=== PATIENT | female | born 1985 | race African-American/Black ===

== ENCOUNTER 2016-12-27 18:08 | Emergency (ER) | payer BC, OTHER ==
--- NOTE | 2016-12-27 20:17 | ER Document Report ---
Doctor's Note Notes: 12/27/16 20:16 31-year-old female presents with complaints of 5 weeks of intermittent vaginal bleeding. Patient denies any fevers chills nausea vomiting or diarrhea. Patient denies any previous similar episodes. Patient notes it is waxing and waning between heavy bleeding and light bleeding.She went through 2-3 pads. Patient is not on any control abdominal exam: No acute abnormality noted, soft nontender I have greeted and performed a rapid initial assessment of this patient. A comprehensive ED assessment and evaluation of the patient, analysis of test results and completion of the medical decision making process will be conducted by additional ED providers.
--- NOTE | 2016-12-27 21:52 | ER Document Report ---
ED General - General Chief Complaint: Vaginal Bleeding Stated Complaint: VAGINAL BLEEDING Notes: Patient is a 31-year-old female who presents concerns of vaginal bleeding for the past 5 weeks. Patient states that she has a history of highly irregular menstrual periods but does not typically bleed for this long. She has not seen an OB or primary care doctor regarding today's concerns. She has not done anything to try to treat her symptoms. Nothing worsens her symptoms. Denies any associated abdominal pain or vomiting. States she's bleeding through approximately 2-3 pads daily. Denies any associated symptoms other than fatigue. TRAVEL OUTSIDE OF THE [place] IN LAST 30 DAYS: No - Related Data Allergies/Adverse Reactions: acetaminophen [From Percocet] Allergy (Verified 12/27/16 18:14) oxycodone [From Percocet] Allergy (Verified 12/27/16 18:14) Past Medical History - General Information source: Patient - Social History Smoking Status: Never Smoker Frequency of alcohol use: None Drug Abuse: None Lives with: Spouse/Significant other Family History: Reviewed & Not Pertinent Patient has suicidal ideation: No Patient has homicidal ideation: No - Past Medical History Cardiac Medical History: Denies: Hx Coronary Artery Disease, Hx Heart Attack, Hx Hypertension Pulmonary Medical History: Denies: Hx Asthma, Hx Bronchitis, Hx COPD, Hx Pneumonia Neurological Medical History: Denies: Hx Cerebrovascular Accident, Hx Seizures Endocrine Medical History: Reports: Hx Diabetes Mellitus Type 2 - Boarder line Renal/ Medical History: Denies: Hx Peritoneal Dialysis Musculoskeltal Medical History: Denies Hx Arthritis Psychiatric Medical History: Reports: Hx Anxiety, Hx Attention Deficit Hyperactivity Disorder - Immunizations Immunizations up to date: Yes Hx Diphtheria, Pertussis, Tetanus Vaccination: Yes Review of Systems - Review of Systems Notes: Constitutional: Negative for fever. HENT: Negative for sore throat. Eyes: Negative for visual changes. Cardiovascular: Negative for chest pain. Respiratory: Negative for shortness of breath. Gastrointestinal: Negative for abdominal pain, vomiting or diarrhea. Genitourinary: Negative for dysuria. Positive for vaginal bleeding Musculoskeletal: Negative for back pain. Skin: Negative for rash. Neurological: Negative for headaches, weakness or numbness. 10 point ROS negative except as marked above and in HPI. Physical Exam - Vital signs Vitals: Temp Pulse Resp BP Pulse Ox 99.0 F 112 H 16 127/79 H 100 12/27/16 18:13 12/27/16 18:13 12/27/16 18:13 12/27/16 18:13 12/27/16 18:13 Interpretation: Normal Notes: PHYSICAL EXAMINATION: GENERAL: Morbidly obese. Well-appearing, well-nourished and in no acute distress. HEAD: Atraumatic, normocephalic. EYES: Pupils equal round and reactive to light, extraocular movements intact, sclera anicteric, conjunctiva are normal. ENT: nares patent, oropharynx clear without exudates. Moist mucous membranes. NECK: Normal range of motion, supple without lymphadenopathy LUNGS: Breath sounds clear to auscultation bilaterally and equal. No wheezes rales or rhonchi. HEART: Regular rate and rhythm without murmurs ABDOMEN: Obese abdomen. Soft, nontender, normoactive bowel sounds. No guarding , no rebound. No masses appreciated. EXTREMITIES: Normal range of motion, no pitting or edema. No cyanosis. NEUROLOGICAL: No focal neurological deficits. Moves all extremities spontaneously and on command. PSYCH: Normal mood, normal affect. SKIN: Warm, Dry, normal turgor, no rashes or lesions noted. Course - Re-evaluation Re-evalutation: 12/27/16 21:51 Presentation is most consistent with dysfunctional uterine bleeding and otherwise well-appearing patient. Her hemoglobin shows only mild anemia although it is decreased from her prior evaluation by almost 2 points. She is not . No tachycardia (initially present in triage but resolved at time of my assessment) or hypotension. Examination is otherwise unremarkable. She denies bleeding through more than 2 pads an hour at any point in time. No indication for ultrasound at this time based on benign exam, vitals and laboratories. No active bleeding at this time. Patient will be started on oral control pills to help discontinue the bleeding. At this time will discharge with return precautions and follow-up recommendations. Verbal discharge instructions given a the bedside and opportunity for questions given. Medication warnings reviewed. Patient is in agreement with this plan and has verbalized understanding of return precautions and the need for primary care follow-up in the next 24-72 hours. - Vital Signs Vital signs: Temp Pulse Resp BP Pulse Ox 98.0 F 95 18 108/54 L 94 12/27/16 23:59 12/27/16 23:59 12/27/16 23:59 12/27/16 23:59 12/27/16 23:59 - Laboratory Result Diagrams: 12/27/16 22:33 12/27/16 22:33 Laboratory results interpreted by me: 12/27/16 12/27/16 22:33 22:33 Hgb 10.6 L Hct 33.7 L MCV 79 L MCH 25.0 L MCHC 31.5 L RDW 14.8 H Carbon Dioxide 32 H Discharge - Discharge Clinical Impression: Dysfunctional uterine bleeding, Blood loss anemia Condition: Good Disposition: HOME, SELF-CARE Additional Instructions: You were seen today for dysfunctional uterine bleeding. This is when you have vaginal bleeding and abdominal cramping off of your normal menstrual cycle. You have been started on control pills to help regulate your cycle and control your symptoms. You need to follow-up with [facility] or your primary care physician the next 1-3 days. Return immediately if you worsening pain, you began bleeding through more than 2 pads per hour for more than 3 hours, you pass out, have persistent vomiting, develop a fever greater than 100.4F, or any other symptoms that are concerning to you. Prescriptions: Norgestimate-Ethinyl Estradiol [Sprintec 28 Day Tablet] 1 tab PO DAILY #1 packet Referrals: MIGUEL CADENA NP [Primary Care Provider] - Follow up as needed XIN MEJIAS MD [ACTIVE STAFF] - Follow up in 3-5 days
[2016-12-27 23:12] LABS: ABSOLUTE EOSINOPHILS # (AUTO) 0.1 10^3/uL (0.0-0.6); ABSOLUTE LYMPHOCYTES (AUTO) 2.6 10^3/uL (0.5-4.7); ABSOLUTE MONOCYTES (AUTO) 0.7 10^3/uL (0.1-1.4); ABSOLUTE NEUT (AUTO) 6.6 10^3/uL (1.7-8.2); BASOPHILS % (AUTO) 0.3 % (0-2); EOSINOPHILS % (AUTO) 1.1 % (0-6); HEMATOCRIT 33.7 % (36.0-47.0); HEMOGLOBIN 10.6 g/dL (12.0-15.5); HGB HCT DIFFERENCE -1.9; LYMPHOCYTES % (AUTO) 26.1 % (13-45); MEAN CORPUSCULAR HGB CONC 31.5 g/dL (32.0-36.0); MEAN CORPUSCULAR VOLUME 79 fl (80-97); MONOCYTES % (AUTO) 7.2 % (3-13); RED BLOOD COUNT 4.25 10^6/uL (3.72-5.28); RED CELL DISTRIBUTION WIDTH 14.8 % (11.5-14.0); SEGMENTED NEUTROPHILS % (AUTO) 65.3 % (42-78)
[2016-12-27 23:15] LABS: ANION GAP 9 (5-19); BLOOD UREA NITROGEN 10 mg/dL (7-20); CALCIUM 9.2 mg/dL (8.4-10.2); CARBON DIOXIDE 32 mmol/L (22-30); CHLORIDE 100 mmol/L (98-107); CREATININE RESULT 0.68 mg/dL (0.52-1.25); GLUCOSE 100 mg/dL (75-110); POTASSIUM 4.3 mmol/L (3.6-5.0); SODIUM 140.5 mmol/L (137-145)
[2016-12-28 01:31] VITALS: BP 108/54
== END 2016-12-28 | disposition home or self-care (01) ==
LOC: ER 18:08
DX: N93.8 Other specified abnormal uterine and vaginal bleeding (principal); D50.0 Iron deficiency anemia secondary to blood loss (chronic); E66.01 Morbid (severe) obesity due to excess calories; Z68.43 Body mass index [BMI] 50.0-59.9, adult; Z88.5 Allergy status to narcotic agent
CPT/HCPCS: 36415; 80048; 81025; 85025; 99284

== ENCOUNTER → 2017-02-16 | Outpatient (CLI) | payer OTHER | LOC: WI 02-12 13:39 | PROVIDERS: ATTEND Nurse Practitioner Women's Health | DX: N93.8 Other specified abnormal uterine and vaginal bleeding (principal) | CPT/HCPCS: 76856 ==

== ENCOUNTER 2017-03-08 17:18 | Emergency (ER) | payer OTHER ==
--- NOTE | 2017-03-08 18:33 | ER Document Report ---
ED Medical Screen (RME) - General Chief Complaint: Chest Pain Stated Complaint: CHEST PAIN Time Seen by Provider: 03/08/17 18:32 Notes: Patient became ill this past week. On Thursday she saw her primary care provider because she has a recurrent cyst in her left axilla. She has been scheduled to see the local surgeon because she has had since there before that he has taken care of. On Thursday, she developed a sore throat with congestion. Seen at a local urgent care and an attempted rapid strep was unsuccessful. Patient returned to the urgent care this morning because she was feeling much worse. Having difficulty talking. Patient was put on penicillin today. Diagnosed as URI and pharyngitis. This afternoon, patient has had some upper left chest pains. I was able to get a swabbing for a rapid strep. The patient's posterior oropharynx is quite red, but I did not see exudates. I do not see any unilateral swelling of the uvula or posterior soft palate. I obtained a swabbing, but I am not confident that it was the best or most reliable swabbing. PMH: Depression, ADHD. Non-smoker. TRAVEL OUTSIDE OF THE [place] IN LAST 30 DAYS: No - Related Data Allergies/Adverse Reactions: acetaminophen [From Percocet] Allergy (Verified 03/08/17 17:26) oxycodone [From Percocet] Allergy (Verified 03/08/17 17:26) Past Medical History - Past Medical History Cardiac Medical History: Denies: Hx Coronary Artery Disease, Hx Heart Attack, Hx Hypertension Pulmonary Medical History: Denies: Hx Asthma, Hx Bronchitis, Hx COPD, Hx Pneumonia Neurological Medical History: Denies: Hx Cerebrovascular Accident, Hx Seizures Endocrine Medical History: Reports: Hx Diabetes Mellitus Type 2 - Board[place] line Renal/ Medical History: Denies: Hx Peritoneal Dialysis Musculoskeltal Medical History: Denies Hx Arthritis Psychiatric Medical History: Reports: Hx Anxiety, Hx Attention Deficit Hyperactivity Disorder - Immunizations Immunizations up to date: Yes Hx Diphtheria, Pertussis, Tetanus Vaccination: Yes Physical Exam - Vital signs Vitals: Temp Pulse Resp BP Pulse Ox 98.7 F 122 H 14 136/96 H 100 03/08/17 17:26 03/08/17 17:26 03/08/17 17:26 03/08/17 17:26 03/08/17 17:26 Course - Vital Signs Vital signs: Temp Pulse Resp BP Pulse Ox 98.7 F 122 H 14 136/96 H 100 03/08/17 17:26 03/08/17 17:26 03/08/17 17:26 03/08/17 17:26 03/08/17 17:26
[2017-03-08 18:49] LABS: ABSOLUTE EOSINOPHILS # (AUTO) 0.2 10^3/uL (0.0-0.6); ABSOLUTE LYMPHOCYTES (AUTO) 2.1 10^3/uL (0.5-4.7); ABSOLUTE MONOCYTES (AUTO) 0.9 10^3/uL (0.1-1.4); ABSOLUTE NEUT (AUTO) 11.7 10^3/uL (1.7-8.2); BASOPHILS % (AUTO) 0.2 % (0-2); HEMATOCRIT 36.8 % (36.0-47.0); HEMOGLOBIN 11.6 g/dL (12.0-15.5); LYMPHOCYTES % (AUTO) 14.3 % (13-45); MEAN CORPUSCULAR HEMOGLOBIN 24.5 pg (27.0-33.4); MEAN CORPUSCULAR HGB CONC 31.4 g/dL (32.0-36.0); MEAN CORPUSCULAR VOLUME 78 fl (80-97); MONOCYTES % (AUTO) 6.2 % (3-13); RED BLOOD COUNT 4.72 10^6/uL (3.72-5.28); RED CELL DISTRIBUTION WIDTH 16.2 % (11.5-14.0); SEGMENTED NEUTROPHILS % (AUTO) 78.3 % (42-78); WHITE BLOOD COUNT 14.9 10^3/uL (4.0-10.5)
[2017-03-08 18:53] LABS: APPEARANCE,URINE CLEAR; BILIRUBIN,URINE NEGATIVE (NEGATIVE); GLUCOSE, URINE NEGATIVE (NEGATIVE); KETONES,URINE NEGATIVE (NEGATIVE); LEUKOCYTE ESTERASE,URINE NEGATIVE (NEGATIVE); NITRITE,URINE NEGATIVE (NEGATIVE); PROTEIN,URINE NEGATIVE (NEGATIVE); URINE SPECIFIC GRAVITY 1.008; UROBILINOGEN,URINE NEGATIVE mg/dL (<2.0)
[2017-03-08 18:54] LABS: ALANINE AMINOTRANSFERASE 27 U/L (9-52); ALBUMIN 3.8 g/dL (3.5-5.0); ALKALINE PHOSPHATASE 109 U/L (38-126); ANION GAP 12 (5-19); ASPARTATE AMINO TRANSFERASE 15 U/L (14-36); BILIRUBIN,DIRECT 0.3 mg/dL (0.0-0.4); BILIRUBIN,TOTAL 0.4 mg/dL (0.2-1.3); BLOOD UREA NITROGEN 9 mg/dL (7-20); CALCIUM 9.2 mg/dL (8.4-10.2); CARBON DIOXIDE 27 mmol/L (22-30); CHLORIDE 100 mmol/L (98-107); CREATININE RESULT 0.71 mg/dL (0.52-1.25); GLUCOSE 118 mg/dL (75-110); POTASSIUM 4.2 mmol/L (3.6-5.0); SODIUM 138.7 mmol/L (137-145); TOTAL PROTEIN 7.8 g/dL (6.3-8.2)
[2017-03-08 19:06] LABS: CREATINE KINASE MB 0.31 ng/mL (<4.55); TROPONIN I < 0.012 ng/mL
--- NOTE | 2017-03-08 19:09 | RADIOLOGY REPORT (SQ) ---
EXAM DESCRIPTION: SOFT TISSUE NECK COMPLETED DATE/TIME: 03/08/2017 7:01 pm REASON FOR STUDY: AP and lateral soft tissue neck, hoarse voice COMPARISON: None. NUMBER OF VIEWS: Two views. TECHNIQUE: AP and lateral radiographic image of the soft tissues of the neck. LIMITATIONS: None. FINDINGS: EPIGLOTTIS: Normal. Contour normal. Aryepiglottic folds normal. PREVERTEBRAL SOFT TISSUES: Normal. No soft tissue swelling. SUBGLOTTIC AREA: Normal. No narrowing. RETROPHARYNGEAL SPACE: Normal. No soft tissue masses. BONY STRUCTURES: No significant findings. LUNG APICES: Normal. OTHER: No radiopaque foreign body. No other significant finding. IMPRESSION: NEGATIVE STUDY OF THE SOFT TISSUES OF THE NECK. TECHNICAL DOCUMENTATION: JOB ID: [id number] [employer]- All Rights Reserved
--- NOTE | 2017-03-08 19:10 | RADIOLOGY REPORT (SQ) ---
EXAM DESCRIPTION: CHEST PA/LAT COMPLETED DATE/TIME: 03/08/2017 7:01 pm REASON FOR STUDY: Fever and cough COMPARISON: 2015 TECHNIQUE: Frontal and lateral radiographic views of the chest acquired. NUMBER OF VIEWS: Two view. LIMITATIONS: None. FINDINGS: LUNGS AND PLEURA: No opacities, masses or pneumothorax. No pleural effusion. MEDIASTINUM AND HILAR STRUCTURES: No masses or contour abnormalities. HEART AND VASCULAR STRUCTURES: Heart normal size. No evidence for failure. BONES: No acute findings. HARDWARE: None in the chest. OTHER: No other significant finding. IMPRESSION: NO SIGNIFICANT RADIOGRAPHIC FINDING IN THE CHEST. TECHNICAL DOCUMENTATION: JOB ID: [id number] [employer]- All Rights Reserved
[2017-03-08] MEDS ORDERED: NORMAL SALINE 1000 ML 1,000 ML IV ONE (19:36)
[2017-03-08] MEDS ORDERED: ONDANSETRON HCL INJ/PF 4 MG/2 ML SDV IV ONE (20:08)
[2017-03-08] MEDS ORDERED: MORPHINE SULFATE 10 MG/ML INJ IV ONE (20:08)
--- NOTE | 2017-03-08 20:11 | ER Document Report ---
ED General - General Mode of Arrival: Ambulatory Information source: Patient TRAVEL OUTSIDE OF THE [place] IN LAST 30 DAYS: No - HPI Onset: Other - Refer to HPI note Similar symptoms previously: No Recently seen / treated by doctor: No <FANTA CRUM - Last Filed: 03/08/17 22:16> <KAILEEMORENO ANN - Last Filed: 03/09/17 01:37> - General Chief Complaint: Chest Pain Stated Complaint: CHEST PAIN Time Seen by Provider: 03/08/17 18:32 Notes: Patient is a 31-year-old female presented emergency department for sharp pain in her right breast. Patient states her pain was onset at 15:00 today. Patient states she is recently diagnosed with an upper respiratory infection at the urgent care on Thursday. Patient also complains of some chronic constipation states she has been taking stool softeners, enemas and laxatives. Patient also has a cough and has been vomiting today. (FANTA CRUM) - Related Data Allergies/Adverse Reactions: acetaminophen [From Percocet] Allergy (Verified 03/08/17 17:26) oxycodone [From Percocet] Allergy (Verified 03/08/17 17:26) Past Medical History - General Information source: Patient - Social History Smoking Status: Never Smoker Cigarette use (# per day): No Chew tobacco use (# tins/day): No Frequency of alcohol use: None Drug Abuse: None Family History: None Patient has suicidal ideation: No Patient has homicidal ideation: No Endocrine Medical History: Reports: Hx Diabetes Mellitus Type 2 - Boarder line Psychiatric Medical History: Reports: Hx Anxiety, Hx Attention Deficit Hyperactivity Disorder Surgical Hx: Negative - Immunizations Immunizations up to date: Yes Hx Diphtheria, Pertussis, Tetanus Vaccination: Yes <FANTA CRUM - Last Filed: 03/08/17 22:16> Review of Systems - Review of Systems Constitutional: No symptoms reported EENT: No symptoms reported Cardiovascular: No symptoms reported Respiratory: No symptoms reported Gastrointestinal: See HPI, Abdominal pain, Nausea, Vomiting Genitourinary: No symptoms reported Female Genitourinary: No symptoms reported Musculoskeletal: No symptoms reported Skin: No symptoms reported Hematologic/Lymphatic: No symptoms reported Neurological/Psychological: No symptoms reported -: Yes All other systems reviewed and negative <FANTA CRUM - Last Filed: 03/08/17 22:16> Physical Exam - Vital signs Interpretation: Tachycardic - General General appearance: Appears well, Alert In distress: Mild - HEENT Head: Normocephalic, Atraumatic Eyes: Normal Pupils: PERRL Mucous membranes: Moist - Respiratory Respiratory status: No respiratory distress Chest status: Nontender Breath sounds: Normal Chest palpation: Normal - Cardiovascular Rhythm: Regular Heart sounds: Normal auscultation Murmur: No - Abdominal Inspection: Normal Distension: No distension Bowel sounds: Normal Tenderness: Tender - right upper quadrant tenderness to palpation, Guarding Organomegaly: No organomegaly - Back Back: Normal, Nontender - Extremities General upper extremity: Normal inspection, Normal ROM, Normal strength General lower extremity: Normal inspection, Normal ROM, Normal strength - Neurological Neuro grossly intact: Yes Cognition: Normal Orientation: AAOx4 [place] Coma Scale Eye Opening: Spontaneous [place] Coma Scale Verbal: Oriented Demetrio Coma Scale Motor: Obeys Commands [place] Coma Scale Total: 15 Speech: Normal - Psychological Associated symptoms: Normal affect, Normal mood - Skin Skin Temperature: Warm Skin Moisture: Dry <FANTA CRUM - Last Filed: 03/08/17 22:16> <MORENO DUGAN - Last Filed: 03/09/17 01:37> - Vital signs Vitals: Temp Pulse Resp BP Pulse Ox 98.7 F 122 H 14 136/96 H 100 03/08/17 17:26 03/08/17 17:26 03/08/17 17:26 03/08/17 17:26 03/08/17 17:26 Course - Laboratory Result Diagrams: 03/08/17 17:55 03/08/17 17:55 <FANTA CRUM - Last Filed: 03/08/17 22:16> - Laboratory Result Diagrams: 03/08/17 17:55 03/08/17 17:55 <MORENO DUGAN - Last Filed: 03/09/17 01:37> - Re-evaluation Re-evalutation: 03/09/17 00:12 Patient with mild leukocytosis. No acute findings on ultrasound, CT, or x- rays. Patient thinks that her pain is related to constipation although it is worse when she moves. I cannot find any dangerous cause of the patient's pain tonight. Patient is requesting to go home at this time. She is to return if any worsening or concerning symptoms. Stable for discharge. (MORENO DUGAN) - Vital Signs Vital signs: Temp Pulse Resp BP Pulse Ox 98.6 F 122 H 17 120/77 100 03/08/17 23:21 03/08/17 17:26 03/08/17 22:00 03/08/17 22:47 03/08/17 22:47 - Laboratory Laboratory results interpreted by me: 03/08/17 03/08/17 03/08/17 17:55 17:55 17:55 WBC 14.9 H Hgb 11.6 L MCV 78 L MCH 24.5 L MCHC 31.4 L RDW 16.2 H Seg Neutrophils % 78.3 H Absolute Neutrophils 11.7 H Glucose 118 H Lipase 671.3 H Discharge <FANTA CRUM - Last Filed: 03/08/17 22:16> <MORENO DUGAN - Last Filed: 03/09/17 01:37> - Discharge Clinical Impression: Atypical chest pain Constipation Qualifiers: Constipation type: other constipation type Qualified Code(s): K59.09 - Other constipation Abdominal pain Qualifiers: Abdominal location: right upper quadrant Qualified Code(s): R10.11 - Right upper quadrant pain Condition: Stable Disposition: HOME, SELF-CARE Instructions: Abdominal Pain ([facility]), Chest Pain of Unclear Cause ([facility]) Additional Instructions: Please follow-up with your doctor this week. Forms: Return to Work Scribe Attestation: 03/09/17 01:37 I personally performed the services described in the documentation, reviewed and edited the documentation which was dictated to the scribe in my presence, and it accurately records my words and actions. (MORENO DUGAN) Scribe Documentation - Scribe Written by Mandeep:: Mandeep Begum 03/08/17 22:19 acting as scribe for :: Kailee <FANTA CRUM - Last Filed: 03/08/17 22:16>
--- NOTE | 2017-03-08 21:26 | RADIOLOGY REPORT (SQ) ---
EXAM DESCRIPTION: U/S ABDOMEN LIMITED W/O DOP COMPLETED DATE/TIME: 03/08/2017 9:18 pm REASON FOR STUDY: RUQ pain COMPARISON: None. TECHNIQUE: Dynamic and static grayscale images acquired of the abdomen and recorded on PACS. Additio nal selected color Doppler and spectral images recorded. LIMITATIONS: None. FINDINGS: PANCREAS: No masses. Visualized pancreatic duct normal caliber. LIVER: Diffusely echogenic, likely fatty. No focal lesions. No enlargement. LIVER VASCULATURE: Normal directional flow of the main portal vein and hepatic veins. GALLBLADDER: No stones. Normal wall thickness. No pericholecystic fluid. ULTRASOUND-DETECTED FERNANDEZ'S SIGN: Negative. INTRAHEPATIC DUCTS AND COMMON DUCT: CBD and intrahepatic ducts normal caliber. No filling defects. INFERIOR VENA CAVA: Normal flow. AORTA: No aneurysm. RIGHT KIDNEY: Normal size. Normal echogenicity. No solid or suspicious masses. No hydronephrosis. No calcifications. PERITONEAL AND RIGHT PLEURAL SPACE: No ascites or effusions. OTHER: No other significant findings. IMPRESSION: Fatty liver. No acute findings appreciated. TECHNICAL DOCUMENTATION: JOB ID: [id number]- All Rights Reserved
--- NOTE | 2017-03-08 23:10 | RADIOLOGY REPORT (SQ) ---
EXAM DESCRIPTION: CTA CHEST COMPLETED DATE/TIME: 03/08/2017 10:21 pm REASON FOR STUDY: evaluate for PE COMPARISON: None. TECHNIQUE: CT scan of the chest performed using helical scanning technique with dynamic intravenous contrast injection. Images reviewed with lung, soft tissue and bone windows. Reconstructed coronal and sagittal MPR images reviewed. Additional 3 dimensional post-processing performed to develop Maximal Intensity Projection images (CT P). All images stored on PACS. All CT scanners at this facility use dose modulation, iterative reconstruction, and/or weight based d osing when appropriate to reduce radiation dose to as low as reasonably achievable (ALARA). [facility]: Dose Right [facility]: CareDose [facility]: Dose Right [facility]: Teradose 4D [facility]: ProHatch CONTRAST TYPE AND DOSE: 86 mL Isovue 370- low osmolar. RENAL FUNCTION: GFR > 60. RADIATION DOSE: 68.27 mGy. LIMITATIONS: Mild breathing motion. FINDINGS: LUNGS AND PLEURA: No masses, infiltrates, pneumothorax. No pleural effusions, calcificati ons. AORTA AND GREAT VESSELS: No aneurysm or dissection. HEART: No pericardial effusion. PULMONARY ARTERIES: No emboli visualized in the main pulmonary arteries or the segmental branches. HILAR AND MEDIASTINAL STRUCTURES: No identified masses or abnormal nodes. HARDWARE: None in the chest. UPPER ABDOMEN: No significant findings. Limited exam. THYROID AND OTHER SOFT TISSUES: No masses. No adenopathy. BONES: No acute or significant finding. 3D MIPS: Confirm above findings. OTHER: No other significant finding. IMPRESSION: No emboli visualized in the main pulmonary arteries or the segmental branches. No acute findings. TECHNICAL DOCUMENTATION: JOB ID: [id number] Quality ID # [id number]: Final reports with documentation of one or more dose reduction techniques (e.g., Au tomated exposure control, adjustment of the mA and/or kV according to patient size, use of iterative reconstruction technique) 2010 [employer]- All Rights Reserved
[2017-03-09] MEDS ORDERED: KETOROLAC TROMETHAMINE INJ/PF 30 MG/1 ML SDV IV ONE (00:12)
[2017-03-09 04:19] VITALS: BP 114/80
== END 2017-03-09 00:20 | disposition home or self-care (01) ==
LOC: ER 17:18
DX: R07.89 Other chest pain (principal); K59.00 Constipation, unspecified; N64.4 Mastodynia; R10.11 Right upper quadrant pain; R11.2 Nausea with vomiting, unspecified; R05 Cough; D72.829 Elevated white blood cell count, unspecified; Z88.5 Allergy status to narcotic agent
CPT/HCPCS: 99285; 96361; 96374; 96375; 36415; 82553; 83690; 84703; 85025; 80053; 81001; 84484; 71020; 70360; 76705; 71275; J2270; J2405; J7030

== ENCOUNTER → 2017-06-04 | Outpatient (CLI) | payer OTHER ==
--- NOTE | 2017-06-04 12:39 | RADIOLOGY REPORT (SQ) ---
EXAM DESCRIPTION: MRI THORACIC SPINE WITHOUT COMPLETED DATE/TIME: 06/04/2017 11:34 am REASON FOR STUDY: PAININ THORACIC SPINE M54.6 PAIN IN THORACIC SPINE COMPARISON: Two-view chest 12/16/2014 MRI cervical spine 01/23/2016 CT angio chest 03/08/2017 TECHNIQUE: Sagittal and Axial imaging includes T1, T2, STIR and gradient echo sequences. LIMITATIONS: None. FINDINGS: LOCALIZER: No worrisome findings. ALIGNMENT: Normal. VERTEBRAE: Intact. BONE MARROW: Normal. No marrow replacement or reactive changes. HARDWARE: None in the spine. CORD: Normal in size and signal intensity. SOFT TISSUES: No soft tissue masses. THORACIC DISCS T1-T12: No significant spinal stenosis or exit foraminal stenosis. LOWER CERVICAL: Incompletely imaged. No significant spinal stenosis or exit foraminal stenosis. UPPER LUMBAR: Incompletely imaged. No significant spinal stenosis or exit foraminal stenosis. OTHER: There is mild bilateral facet arthropathy in the mid and lower thoracic spine without signific ant foraminal encroachment. IMPRESSION: NORMAL MRI THORACIC SPINE. TECHNICAL DOCUMENTATION: JOB ID: [id number]- All Rights Reserved
== END ==
LOC: RAD 10:37
PROVIDERS: ATTEND Nurse Practitioner
DX: M54.6 Pain in thoracic spine (principal); G89.29 Other chronic pain
CPT/HCPCS: 72146

== ENCOUNTER 2017-06-16 15:25 | Emergency (ER) | payer OTHER ==
--- NOTE | 2017-06-16 16:57 | ER Document Report ---
ED Extremity Problem, Lower - General Chief Complaint: Leg Pain Stated Complaint: LEG PAIN Time Seen by Provider: 06/16/17 16:51 Mode of Arrival: Ambulatory Information source: Patient Notes: Patient states that she has some left lower externally pain that has been intermittently present since a arthroscopic procedure several months ago. She states that she noticed some recent swelling and pain and so she had an ultrasound done today. These ultrasound results have been located and they were negative for DVT. The ultrasound performed here in radiology. Patient states that she signed in the emergency department because of the leg pain. The pain is constant. It is worse with movement and better with rest. It does radiate up the left leg. It is a throbbing sensation. She also feels that she has some swelling. She states she has a knee brace but does not wear it because it makes the pain worse. TRAVEL OUTSIDE OF THE [place] IN LAST 30 DAYS: No - Related Data Allergies/Adverse Reactions: acetaminophen [From Percocet] Allergy (Verified 06/16/17 15:39) oxycodone [From Percocet] Allergy (Verified 06/16/17 15:39) Past Medical History - General Information source: Patient - Social History Smoking Status: Never Smoker Chew tobacco use (# tins/day): No Frequency of alcohol use: None Drug Abuse: None Lives with: Family Family History: None Patient has suicidal ideation: No Patient has homicidal ideation: No - Past Medical History Cardiac Medical History: Denies: Hx Coronary Artery Disease, Hx Heart Attack, Hx Hypertension Pulmonary Medical History: Denies: Hx Asthma, Hx Bronchitis, Hx COPD, Hx Pneumonia Neurological Medical History: Denies: Hx Cerebrovascular Accident, Hx Seizures Endocrine Medical History: Reports: Hx Diabetes Mellitus Type 2 - [place] line Renal/ Medical History: Denies: Hx Peritoneal Dialysis Musculoskeltal Medical History: Denies Hx Arthritis Psychiatric Medical History: Reports: Hx Anxiety, Hx Attention Deficit Hyperactivity Disorder - Immunizations Immunizations up to date: Yes Hx Diphtheria, Pertussis, Tetanus Vaccination: Yes Review of Systems - Review of Systems Constitutional: denies: Chills, Fever Cardiovascular: denies: Chest pain, Palpitations Respiratory: denies: Cough, Short of breath Gastrointestinal: denies: Diarrhea, Vomiting -: Yes All other systems reviewed and negative Physical Exam - Vital signs Vitals: Temp Pulse Resp BP Pulse Ox 98.8 F 106 H 14 137/91 H 100 06/16/17 15:39 06/16/17 15:39 06/16/17 15:39 06/16/17 15:39 06/16/17 15:39 Interpretation: Hypertensive, Tachycardic - General General appearance: Appears well, Alert - HEENT Head: Normocephalic, Atraumatic Eyes: Normal Pupils: PERRL - Respiratory Respiratory status: No respiratory distress Chest status: Nontender Breath sounds: Normal Chest palpation: Normal - Cardiovascular Rhythm: Tachycardia Heart sounds: Normal auscultation Murmur: No - Abdominal Inspection: Normal Distension: No distension Bowel sounds: Normal Tenderness: Nontender Organomegaly: No organomegaly - Back Back: Normal, Nontender - Extremities General upper extremity: Normal inspection, Nontender, Normal color, Normal ROM , Normal temperature General lower extremity: Tender, Normal color, Normal temperature. No: Sue's sign - Neurological Neuro grossly intact: Yes Cognition: Normal Orientation: AAOx4 Demetrio Coma Scale Eye Opening: Spontaneous [place] Coma Scale Verbal: Oriented [place] Coma Scale Motor: Obeys Commands [place] Coma Scale Total: 15 Speech: Normal Motor strength normal: LUE, RUE, LLE, RLE Sensory: Normal - Psychological Associated symptoms: Normal affect, Normal mood - Skin Skin Temperature: Warm Skin Moisture: Dry Skin Color: Normal Course - Vital Signs Vital signs: Temp Pulse Resp BP Pulse Ox 98.8 F 106 H 14 137/91 H 100 06/16/17 15:39 06/16/17 15:39 06/16/17 15:39 06/16/17 15:39 06/16/17 15:39 - Diagnostic Test Radiology reviewed: Image reviewed, Reports reviewed - doppler of LLE is neg for dvt Discharge - Discharge Clinical Impression: Leg pain Condition: Stable Disposition: HOME, SELF-CARE Instructions: Leg Cramps ([facility]) Additional Instructions: Please call orthopedics as soon as possible to establish follow-up Forms: Elevated Blood Pressure Referrals: CASS AGOSTO MD [ACTIVE STAFF] - Follow up tomorrow
[2017-06-16 17:20] VITALS: BP 137/92
== END 2017-06-16 17:20 | disposition home or self-care (01) ==
LOC: ER 15:25
DX: M79.662 Pain in left lower leg (principal); R73.03 Prediabetes; Z88.6 Allergy status to analgesic agent
CPT/HCPCS: 99283

== ENCOUNTER → 2017-06-16 | Outpatient (CLI) | payer OTHER ==
--- NOTE | 2017-06-16 16:38 | XCELERA REPORT ---
[address] [address] Lower Extremity Venous Evaluation Name: BERENICE CANNON Age: 31 yrs Gender: Female : 1985 Patient Status: Outpatient Patient Location: Study Date: 06/16/2017 02:46 PM Procedure: Color flow and duplex imaging of the veins of the left lower extremity as well as the right Common Femoral vein. Reason For Study: LLE SWELLING Ordering Physician: TODD [place] Performed By: Liat Willis Right Sided Venous Evaluation The right common femoral vein is fully compressible. Spontaneous and phasic flow is present in the right common femoral vein. Left Sided Venous Evaluation Normal vessel filling wall to wall, compression and augmentation as well as Colour flow down to the infrageniculate veins. Interpretation Summary No duplex evidence of DVT or obstruction in the left lower extremity nor in the right Common Femoral vein. : TODD [place]OR[place]O > Goldy Alicia
== END ==
LOC: SP 14:29
PROVIDERS: ATTEND Family Medicine
DX: R22.42 Localized swelling, mass and lump, left lower limb (principal)
CPT/HCPCS: 93971

== ENCOUNTER 2017-06-17 03:06 | Emergency (ER) | payer OTHER ==
[2017-06-17 03:19] VITALS: BP 138/91
== END 2017-06-17 06:30 | disposition left against medical advice (07) ==
LOC: ER 03:06
DX: Z53.9 Procedure and treatment not carried out, unspecified reason (principal); M79.605 Pain in left leg

== ENCOUNTER 2017-06-20 23:21 | Emergency (ER) | payer BC, OTHER ==
[2017-06-20] MEDS ORDERED: FAMOTIDINE 20 MG TABLET PO ONE (23:49)
[2017-06-20] MEDS ORDERED: ONDANSETRON 4 MG TAB.RAPDIS PO ONE (23:49)
[2017-06-20] MEDS ORDERED: SUCRALFATE 1 GM TABLET PO ONE (23:49)
--- NOTE | 2017-06-20 23:52 | ER Document Report ---
ED General - General Chief Complaint: Rectal Bleeding Stated Complaint: RECTAL BLEEDING Time Seen by Provider: 06/20/17 23:38 Notes: Patient is a 31-year-old female comes emergency department for chief complaint of abdominal discomfort and flank pain on both sides, she states she cannot stop belching and passing gas, she also states she had a normal consistency bowel movement with bright red blood in it, she thinks she has hemorrhoids. She denies vomiting, fever, injury. She is on Flexeril and meloxicam for chronic lower back pain and sees a specialist and got a back injection. She denies numbness, incontinence, new pain in her lower back. TRAVEL OUTSIDE OF THE [place] IN LAST 30 DAYS: No - Related Data Allergies/Adverse Reactions: acetaminophen [From Percocet] Allergy (Verified 06/20/17 23:25) oxycodone [From Percocet] Allergy (Verified 06/20/17 23:25) Past Medical History - General Information source: Patient - Social History Smoking Status: Never Smoker Frequency of alcohol use: None Drug Abuse: None Lives with: Family Family History: None Patient has suicidal ideation: No Patient has homicidal ideation: No - Past Medical History Cardiac Medical History: Denies: Hx Coronary Artery Disease, Hx Heart Attack, Hx Hypertension Pulmonary Medical History: Denies: Hx Asthma, Hx Bronchitis, Hx COPD, Hx Pneumonia Neurological Medical History: Denies: Hx Cerebrovascular Accident, Hx Seizures Endocrine Medical History: Reports: Hx Diabetes Mellitus Type 2 - [place] Renal/ Medical History: Denies: Hx Peritoneal Dialysis Musculoskeltal Medical History: Denies Hx Arthritis Psychiatric Medical History: Reports: Hx Anxiety, Hx Attention Deficit Hyperactivity Disorder Past Surgical History: Reports: Hx Orthopedic Surgery - Immunizations Immunizations up to date: Yes Hx Diphtheria, Pertussis, Tetanus Vaccination: Yes Review of Systems - Review of Systems Constitutional: No symptoms reported EENT: No symptoms reported Cardiovascular: No symptoms reported Respiratory: No symptoms reported Gastrointestinal: See HPI Genitourinary: See HPI Female Genitourinary: No symptoms reported Musculoskeletal: See HPI Skin: No symptoms reported Hematologic/Lymphatic: No symptoms reported Neurological/Psychological: No symptoms reported Physical Exam - Vital signs Vitals: Temp Pulse Resp BP Pulse Ox 98.6 F 108 H 18 133/86 H 100 06/20/17 23:26 06/20/17 23:26 06/20/17 23:26 06/20/17 23:26 06/20/17 23:26 Interpretation: Normal - General General appearance: Appears well, Alert - HEENT Head: Normocephalic, Atraumatic Eyes: Normal Pupils: PERRL Nasal: Normal Mouth/Lips: Normal Mucous membranes: Normal Pharynx: Normal Neck: Normal - Respiratory Respiratory status: No respiratory distress Chest status: Nontender Breath sounds: Normal. No: Decreased air movement, Wheezing Chest palpation: Normal - Cardiovascular Rhythm: Regular, Tachycardia - Borderline Heart sounds: Normal auscultation, S1 appreciated, S2 appreciated Murmur: No - Abdominal Inspection: Normal Distension: No distension Bowel sounds: Normal Tenderness: Nontender. No: Tender - Completely nontender abdomen, Guarding Organomegaly: No organomegaly - Rectal Stool: Heme negative. No: Black, Bloody Hemorrhoids: Internal - Internal hemorrhoid at 10:00. No: External, Anal fissure, Mass - Back Back: Normal, Nontender - Extremities General upper extremity: Normal inspection, Nontender, Normal color, Normal ROM , Normal temperature General lower extremity: Normal inspection, Nontender, Normal color, Normal ROM , Normal temperature, Normal weight bearing. No: Sue's sign - Neurological Neuro grossly intact: Yes Cognition: Normal Orientation: AAOx4 [place] Coma Scale Eye Opening: Spontaneous [place] Coma Scale Verbal: Oriented [place] Coma Scale Motor: Obeys Commands [place] Coma Scale Total: 15 Speech: Normal Motor strength normal: LUE, RUE, LLE, RLE Sensory: Normal - Psychological Associated symptoms: Normal affect, Normal mood - Skin Skin Temperature: Warm Skin Moisture: Dry Skin Color: Normal Course - Re-evaluation Re-evalutation: Patient mildly tachycardic, however she is very well-appearing. Completely benign abdomen, no flank tenderness, clear lungs, no fever, no hypotension. Given Carafate, Zofran, Pepcid. Afterwards patient states she felt great and had no complaints. Chemistry is unremarkable, urinalysis unremarkable. Patient does have leukocytosis at 17,000. Reassessed patient, still has a benign abdomen, still has no complaints. Only complaint now is some flatulence. I discussed leukocytosis with patient. Patient states that she always has leukocytosis, she states that she was referred to hematology once because of it and they told her she was fine. Patient does average at about 13-14 which is slightly above that today. However she has no nuchal rigidity, no shortness of breath, clear lungs, no signs of infection, I reassessed her at bedside and she was not tachycardic. Very low suspicion of acute abdomen or any acute infectious process. No vaginal discharge or lower abdominal pain suggesting PID. Patient asking to leave instead of continuing workup. She states she feels much better. She denies having any pain including abdominal pain. She does have an internal hemorrhoid, negative blood on stool, no blood on exam. I discussed all details of workup with patient, recommended medications, discussed close gastroenterology follow-up, discussed return precautions. Patient states understanding and agreement. - Vital Signs Vital signs: Temp Pulse Resp BP Pulse Ox 98.6 F 108 H 18 131/58 H 98 06/20/17 23:26 06/20/17 23:26 06/21/17 01:01 06/21/17 02:48 06/21/17 02:48 - Laboratory Result Diagrams: 06/21/17 00:38 06/21/17 00:38 Laboratory results interpreted by me: 06/21/17 06/21/17 06/21/17 00:38 00:38 01:34 WBC 17.1 H Hgb 10.9 L Hct 33.1 L MCV 76 L MCH 25.1 L RDW 16.7 H Absolute Neutrophils 11.3 H Alkaline Phosphatase 178 H Urine Ascorbic Acid 40 H Discharge - Discharge Clinical Impression: Flank pain, Belching, Excessive flatus Abdominal pain Qualifiers: Abdominal location: generalized Qualified Code(s): R10.84 - Generalized abdominal pain Condition: Stable Disposition: HOME, SELF-CARE Additional Instructions: Take the Carafate along with your omeprazole for your gastrointestinal symptoms. I recommend a probiotic as well [id number]. You have an internal hemorrhoid. Take the stool softener, avoid straining ( especially on the toilet). Please follow-up with the gastroenterology referral for additional management, you may need an endoscopy and colonoscopy for further evaluation of your ongoing symptoms. Return to the emergency department for any concerning or worsening symptoms including vomiting, severe pain, fever, or any other concerning or worsening symptoms. Prescriptions: Docusate Sodium [Colace 100 mg Capsule] 100 mg PO DAILY #30 capsule Sucralfate [Carafate 1 gm Tablet] 1 gm PO QID #20 tablet Referrals: JEFF HUTCHINSON MD [ACTIVE STAFF] - Follow up as needed
[2017-06-21 01:05] LABS: ALANINE AMINOTRANSFERASE 30 U/L (9-52); ALBUMIN 3.6 g/dL (3.5-5.0); ALKALINE PHOSPHATASE 178 U/L (38-126); ANION GAP 11 (5-19); ASPARTATE AMINO TRANSFERASE 20 U/L (14-36); BILIRUBIN,DIRECT 0.3 mg/dL (0.0-0.4); BILIRUBIN,TOTAL 0.3 mg/dL (0.2-1.3); BLOOD UREA NITROGEN 17 mg/dL (7-20); CALCIUM 9.4 mg/dL (8.4-10.2); CARBON DIOXIDE 25 mmol/L (22-30); CHLORIDE 102 mmol/L (98-107); CREATININE RESULT 0.78 mg/dL (0.52-1.25); GLUCOSE 89 mg/dL (75-110); POTASSIUM 4.6 mmol/L (3.6-5.0); SODIUM 137.9 mmol/L (137-145); TOTAL PROTEIN 7.2 g/dL (6.3-8.2)
[2017-06-21 01:07] LABS: ABSOLUTE BASOPHILS # (AUTO) 0.1 10^3/uL (0.0-0.2); ABSOLUTE EOSINOPHILS # (AUTO) 0.2 10^3/uL (0.0-0.6); ABSOLUTE LYMPHOCYTES (AUTO) 4.6 10^3/uL (0.5-4.7); ABSOLUTE NEUT (AUTO) 11.3 10^3/uL (1.7-8.2); BASOPHILS % (AUTO) 0.7 % (0-2); EOSINOPHILS % (AUTO) 1.1 % (0-6); HEMATOCRIT 33.1 % (36.0-47.0); HEMOGLOBIN 10.9 g/dL (12.0-15.5); HGB HCT DIFFERENCE -0.4; LYMPHOCYTES % (AUTO) 26.7 % (13-45); MEAN CORPUSCULAR HEMOGLOBIN 25.1 pg (27.0-33.4); MEAN CORPUSCULAR HGB CONC 32.9 g/dL (32.0-36.0); MEAN CORPUSCULAR VOLUME 76 fl (80-97); MONOCYTES % (AUTO) 5.7 % (3-13); RED BLOOD COUNT 4.34 10^6/uL (3.72-5.28); RED CELL DISTRIBUTION WIDTH 16.7 % (11.5-14.0); SEGMENTED NEUTROPHILS % (AUTO) 65.8 % (42-78); WHITE BLOOD COUNT 17.1 10^3/uL (4.0-10.5)
[2017-06-21 01:59] LABS: APPEARANCE,URINE CLEAR; BILIRUBIN,URINE NEGATIVE (NEGATIVE); GLUCOSE, URINE NEGATIVE (NEGATIVE); KETONES,URINE NEGATIVE (NEGATIVE); LEUKOCYTE ESTERASE,URINE NEGATIVE (NEGATIVE); NITRITE,URINE NEGATIVE (NEGATIVE); PROTEIN,URINE NEGATIVE (NEGATIVE); URINE SPECIFIC GRAVITY 1.013; UROBILINOGEN,URINE NEGATIVE mg/dL (<2.0)
[2017-06-21] MEDS ORDERED: HYDROCODONE/ACETAMINOPHEN 5-325 MG 6 TAB/DSPK PO PRN (02:39)
[2017-06-21 02:57] VITALS: BP 131/58
== END 2017-06-21 02:58 | disposition home or self-care (01) ==
LOC: ER 23:21
DX: R10.84 Generalized abdominal pain (principal); R10.9 Unspecified abdominal pain; R14.2 Eructation; R14.3 Flatulence; K62.5 Hemorrhage of anus and rectum; M54.5 Low back pain; G89.29 Other chronic pain; Z79.899 Other long term (current) drug therapy
CPT/HCPCS: 99284; 36415; 85025; 82272; 81025; 80053; 81001; S0119

== ENCOUNTER 2017-06-23 14:16 | Emergency (ER) | payer OTHER ==
[2017-06-23 14:34] VITALS: BP 125/96
== END 2017-06-23 15:35 | disposition left against medical advice (07) ==
LOC: ER 14:16
DX: Z53.21 Procedure and treatment not carried out due to patient leaving prior to being seen by health care provider (principal)

== ENCOUNTER 2017-07-05 20:12 | Emergency (ER) | payer OTHER ==
--- NOTE | 2017-07-05 20:46 | ER Document Report ---
ED General - General Mode of Arrival: Wheelchair Information source: Patient TRAVEL OUTSIDE OF THE [place] IN LAST 30 DAYS: No - General Chief Complaint: Blood Pressure Problem Stated Complaint: LEFT LEG WEAKNESS,HEADACHE Notes: Patient is a 31 year old female presenting to the ED for a decreased sensation and heaviness to her left lower extremity. Patient states that she felt like her feet were bricks today when she got up and was walking. Patient states she feels like her left lower extremity is weak. Patient was seen at urgent care today and told she had a high blood pressure of 200/100 and was told to go to the ED. Patient has had prehypertension at her PCPs office and was started on lasix for her peripheral edema. Patient states that she had a negative doppler study in mid-May. Patient states that she has problems with her hips, left knee, and left ankle. Patient also states she feels like her lips are swollen and dry. Patient is taking Miralax after having an colonoscopy completed last week. Patient states she is not loosing control of her bowels or bladder. Patient states she has an appointment with her GI specialist on and her PCP the next week. (FANTA CRUM) - Related Data Allergies/Adverse Reactions: acetaminophen [From Percocet] Allergy (Verified 06/23/17 14:30) oxycodone [From Percocet] Allergy (Verified 06/23/17 14:30) Past Medical History - General Information source: Patient - Social History Smoking Status: Never Smoker Cigarette use (# per day): No Chew tobacco use (# tins/day): No Smoking Education Provided: No Frequency of alcohol use: None Drug Abuse: None Family History: None Patient has suicidal ideation: No Patient has homicidal ideation: No Endocrine Medical History: Reports: Hx Diabetes Mellitus Type 2 - [place] GI Medical History: Reports: Hx Colonoscopy Psychiatric Medical History: Reports: Hx Anxiety, Hx Attention Deficit Hyperactivity Disorder Past Surgical History: Reports: Hx Orthopedic Surgery - Immunizations Immunizations up to date: Yes Hx Diphtheria, Pertussis, Tetanus Vaccination: Yes Review of Systems - Review of Systems Musculoskeletal: See HPI Skin: See HPI Neurological/Psychological: See HPI, Sensory change, Numbness Physical Exam - Vital signs Interpretation: Hypertensive - Vital signs Vitals: Temp Pulse BP Pulse Ox 98.7 F 125 H 153/117 H 99 07/05/17 20:24 07/05/17 20:24 07/05/17 20:24 07/05/17 20:24 - Notes Notes: GENERAL: Alert, interacts well. No acute distress. HEAD: Normocephalic, atraumatic. EYES: Pupils equal, round, and reactive to light. Extraocular movements intact. ENT: Oral mucosa moist, tongue midline. NECK: Full range of motion. Supple. Trachea midline. LUNGS: Clear to auscultation bilaterally, no wheezes, rales, or rhonchi. No respiratory distress. HEART: Regular rate and rhythm. No murmurs, gallops, or rubs. EXTREMITIES: Moves all 4 extremities spontaneously. No edema. 5/5 composition floor setter strength bilaterally. Negative straight leg test. 5/5 great toe raise strength bilaterally. No cyanosis. NEUROLOGICAL: Alert and oriented x3. Normal speech. Decreased sensation in a stocking type distribution across the lower left leg. Only decreased sensation of the lateral left thigh. Normal sensation of the medial left thigh. PSYCH: Normal affect, normal mood. SKIN: Warm, dry, normal turgor. No rashes or lesions noted. (FANTA CRUM) Course - Re-evaluation Re-evalutation: 07/05/17 20:47 No evidence of stroke, was able to heel walk and toe walk for me without difficulty, negative straight leg raising test decreases my suspicion for herniated disc although there may be some sciatic nerve impingement. No indication for acute imaging at this time. Given the fact that the patient is reporting multiple elevated blood pressure readings over the past 2 weeks associated with a reading of approximately 200/ 100 mmHg at urgent care today I do think it is prudent to start her on some blood pressure medication, I will start hydrochlorothiazide at this time. Patient will be discharged home. (MIGUEL ÁNGEL MARTINEZ) - Vital Signs Vital signs: Temp Pulse Resp BP Pulse Ox 98.7 F 116 H 16 134/100 H 98 07/05/17 20:25 07/05/17 20:47 07/05/17 20:47 07/05/17 20:47 07/05/17 20:47 Discharge - Discharge Clinical Impression: Left leg paresthesias Hypertension Qualifiers: Hypertension type: essential hypertension Qualified Code(s): I10 - Essential ( primary) hypertension Condition: Stable Disposition: HOME, SELF-CARE Additional Instructions: Please return should you develop difficulty holding urine or your stool, if your leg is completely numb, if you can no longer lift your foot or if you develop any new or concerning symptoms. Prescriptions: Hydrochlorothiazide 25 mg PO DAILY #14 tablet Forms: Elevated Blood Pressure Scribe Attestation: 07/05/17 21:12 I personally performed the services described in the documentation, reviewed and edited the documentation which was dictated to the scribe in my presence, and it accurately records my words and actions. (MIGUEL ÁNGEL MARTINEZ) Scribe Documentation - Scribe Written by Erendirae:: Mandeep Begum 07/05/17 21:00 acting as scribe for :: Amilcar
[2017-07-05 20:55] VITALS: BP 134/100
== END 2017-07-05 20:54 | disposition home or self-care (01) ==
LOC: ER 20:12
DX: R20.2 Paresthesia of skin (principal); I10 Essential (primary) hypertension; R51 Headache; R53.1 Weakness; Z88.6 Allergy status to analgesic agent
CPT/HCPCS: 99283

== ENCOUNTER → 2017-07-12 | Outpatient (CLI) | payer OTHER ==
--- NOTE | 2017-07-12 15:16 | RADIOLOGY REPORT (SQ) ---
EXAM DESCRIPTION: MRI LUMBAR SPINE WITHOUT COMPLETED DATE/TIME: 07/12/2017 1:05 pm REASON FOR STUDY: LOW BACK PAIN M54.5 LOW BACK PAIN COMPARISON: None. TECHNIQUE: Sagittal and Axial imaging includes T1, T2, STIR and gradient echo sequences. Coronal T2/ HASTE imaging. LIMITATIONS: None. FINDINGS: VISUALIZED UPPER ABDOMEN: Limited evaluation. No acute or suspicious findings suggested. SEGMENTATION: No transitional anatomy. The lowest well-developed disc space is labeled L5-S1. ALIGNMENT: Anatomic. VERTEBRAE: Intact. BONE MARROW: Normal. No marrow replacement or reactive changes. DISC SIGNAL: Normal. No significant abnormal signal or loss of height. POSTERIOR ELEMENTS: Generally intact. No pars defect evident. HARDWARE: None in the spine. CORD AND CONUS: Normal in size and signal intensity. Conus at the appropriate level. SOFT TISSUES: No aortic aneurysm seen. No bulky retroperitoneal adenopathy or mass. No paraspinal mas s or fluid. L1-L2: No significant spinal stenosis or exit foraminal stenosis. L2-L3: No significant spinal stenosis or exit foraminal stenosis. Mild bilateral facet hypertrophy L3-L4: No significant spinal stenosis or exit foraminal stenosis. Mild bilateral facet hypertrophy L4-L5: No significant spinal stenosis or exit foraminal stenosis. Mild bilateral facet hypertrophy L5-S1: No significant spinal stenosis or exit foraminal stenosis. LOWER THORACIC: Incompletely imaged. No stenosis seen. SACRUM: Visualized upper sacrum intact. OTHER: No other significant findings. IMPRESSION: NORMAL MRI LUMBAR SPINE. TECHNICAL DOCUMENTATION: JOB ID: [id number] [employer] All Rights Reserved
== END ==
LOC: RAD 12:00
PROVIDERS: ATTEND Family Medicine
DX: M54.5 Low back pain (principal)
CPT/HCPCS: 72148

== ENCOUNTER → 2017-07-27 | Outpatient (CLI) | payer OTHER ==
[2017-07-27 17:12] LABS: ABSOLUTE EOSINOPHILS # (AUTO) 0.2 10^3/uL (0.0-0.6); ABSOLUTE LYMPHOCYTES (AUTO) 2.6 10^3/uL (0.5-4.7); ABSOLUTE MONOCYTES (AUTO) 0.6 10^3/uL (0.1-1.4); ABSOLUTE NEUT (AUTO) 8.2 10^3/uL (1.7-8.2); BASOPHILS % (AUTO) 0.3 % (0-2); EOSINOPHILS % (AUTO) 1.6 % (0-6); HEMATOCRIT 34.9 % (36.0-47.0); HEMOGLOBIN 11.2 g/dL (12.0-15.5); HGB HCT DIFFERENCE -1.3; LYMPHOCYTES % (AUTO) 22.7 % (13-45); MEAN CORPUSCULAR HEMOGLOBIN 24.7 pg (27.0-33.4); MEAN CORPUSCULAR HGB CONC 32.2 g/dL (32.0-36.0); MEAN CORPUSCULAR VOLUME 77 fl (80-97); MONOCYTES % (AUTO) 5.3 % (3-13); RED BLOOD COUNT 4.55 10^6/uL (3.72-5.28); RED CELL DISTRIBUTION WIDTH 15.7 % (11.5-14.0); SEGMENTED NEUTROPHILS % (AUTO) 70.1 % (42-78); WHITE BLOOD COUNT 11.6 10^3/uL (4.0-10.5)
[2017-07-27 17:41] LABS: ALANINE AMINOTRANSFERASE 31 U/L (9-52); ALBUMIN 3.8 g/dL (3.5-5.0); ALKALINE PHOSPHATASE 127 U/L (38-126); ANION GAP 12 (5-19); ASPARTATE AMINO TRANSFERASE 18 U/L (14-36); BILIRUBIN,DIRECT 0.2 mg/dL (0.0-0.4); BILIRUBIN,TOTAL 0.2 mg/dL (0.2-1.3); BLOOD UREA NITROGEN 10 mg/dL (7-20); CARBON DIOXIDE 30 mmol/L (22-30); CHLORIDE 102 mmol/L (98-107); CREATININE RESULT 0.74 mg/dL (0.52-1.25); GLUCOSE 112 mg/dL (75-110); POTASSIUM 4.1 mmol/L (3.6-5.0); SODIUM 144.3 mmol/L (137-145); TOTAL PROTEIN 7.3 g/dL (6.3-8.2)
== END ==
LOC: OD 16:17
PROVIDERS: ATTEND Surgery
DX: Z01.810 Encounter for preprocedural cardiovascular examination (principal); Z01.811 Encounter for preprocedural respiratory examination; Z01.812 Encounter for preprocedural laboratory examination; Z01.818 Encounter for other preprocedural examination; M25.572 Pain in left ankle and joints of left foot; E66.01 Morbid (severe) obesity due to excess calories; K21.9 Gastro-esophageal reflux disease without esophagitis
CPT/HCPCS: 36415; 80053; 84443; 84550; 85025

== ENCOUNTER 2017-11-24 05:35 | Day surgery (SDC) | payer OTHER ==
--- NOTE | 2017-11-17 11:12 | RADIOLOGY REPORT (SQ) ---
EXAM DESCRIPTION: CHEST PA/LATERAL COMPLETED DATE/TIME: 11/17/2017 10:30 am REASON FOR STUDY: PRE OP COMPARISON: CTA chest 03/08/2017 2 View Chest 03/08/2017 EXAM PARAMETERS: NUMBER OF VIEWS: two views TECHNIQUE: Digital Frontal and Lateral radiographic views of the chest acquired. RADIATION DOSE: NA LIMITATIONS: none FINDINGS: LUNGS AND PLEURA: No opacities, masses or pneumothorax. No pleural effusion. MEDIASTINUM AND HILAR STRUCTURES: No masses or contour abnormalities. HEART AND VASCULAR STRUCTURES: Heart normal size. No evidence for failure. BONES: No acute findings. HARDWARE: None in the chest. OTHER: No other significant finding. IMPRESSION: NO SIGNIFICANT RADIOGRAPHIC FINDING IN THE CHEST. TECHNICAL DOCUMENTATION: JOB ID: [id number] [employer]- All Rights Reserved
--- NOTE | 2017-11-17 12:21 | EKG REPORT ---
SEVERITY:- BORDERLINE ECG - SINUS TACHYCARDIA NONSPECIFIC ST-T CHANGES LATERAL LEADS. : Confirmed by: Will Barcenas MD 17-Nov-2017 12:20:32
[2017-11-17 17:42] LABS: ABSOLUTE EOSINOPHILS # (AUTO) 0.2 10^3/uL (0.0-0.6); ABSOLUTE LYMPHOCYTES (AUTO) 2.3 10^3/uL (0.5-4.7); ABSOLUTE MONOCYTES (AUTO) 0.6 10^3/uL (0.1-1.4); ABSOLUTE NEUT (AUTO) 9.6 10^3/uL (1.7-8.2); BASOPHILS % (AUTO) 0.2 % (0-2); EOSINOPHILS % (AUTO) 1.4 % (0-6); HEMOGLOBIN 11.8 g/dL (12.0-15.5); LYMPHOCYTES % (AUTO) 18.3 % (13-45); MEAN CORPUSCULAR HEMOGLOBIN 24.4 pg (27.0-33.4); MEAN CORPUSCULAR HGB CONC 31.9 g/dL (32.0-36.0); MEAN CORPUSCULAR VOLUME 76 fl (80-97); MONOCYTES % (AUTO) 4.5 % (3-13); PLATELET COUNT 386 10^3/uL (150-450); RED BLOOD COUNT 4.85 10^6/uL (3.72-5.28); RED CELL DISTRIBUTION WIDTH 16.6 % (11.5-14.0); SEGMENTED NEUTROPHILS % (AUTO) 75.6 % (42-78); TOTAL CELLS COUNTED % (AUTO) 100 %; WHITE BLOOD COUNT 12.7 10^3/uL (4.0-10.5)
[2017-11-17 17:56] LABS: APPEARANCE,URINE SLIGHTLY-CLOUDY; BILIRUBIN,URINE NEGATIVE (NEGATIVE); COLOR,URINE YELLOW; GLUCOSE, URINE NEGATIVE (NEGATIVE); KETONES,URINE NEGATIVE (NEGATIVE); LEUKOCYTE ESTERASE,URINE NEGATIVE (NEGATIVE); NITRITE,URINE NEGATIVE (NEGATIVE); PROTEIN,URINE NEGATIVE (NEGATIVE); URINE SPECIFIC GRAVITY 1.014; UROBILINOGEN,URINE NEGATIVE mg/dL (<2.0)
[2017-11-17 17:57] LABS: ANION GAP 10 (5-19); BLOOD UREA NITROGEN 8 mg/dL (7-20); CALCIUM 9.2 mg/dL (8.4-10.2); CARBON DIOXIDE 27 mmol/L (22-30); CHLORIDE 101 mmol/L (98-107); GLUCOSE 94 mg/dL (75-110); POTASSIUM 4.2 mmol/L (3.6-5.0); SODIUM 138.3 mmol/L (137-145)
[~2017-11-24 05:35] MED LIST: CEFAZOLIN 2 GM/D5W RTU 2 GM/50 ML RTUPB IV PRN; LACTATED RINGERS 1000 ML IV PRN; LIDOCAINE 0.5% INJ-PF (5 MG/ML) 50 ML SDV SUBCUT PRN
[2017-11-24] MEDS ORDERED: GLYCOPYRROLATE INJ 0.4 MG/2 ML VIAL ONE (08:00)
[2017-11-24] MEDS ORDERED: LIDOCAINE 2% INJ-PF (20 MG/ML) 2 ML AMPUL ONE (08:00)
[2017-11-24] MEDS ORDERED: SUCCINYLCHOLINE CHLORIDE INJ 200 MG/10 ML VIAL ONE (08:00)
[2017-11-24] MEDS ORDERED: KETOROLAC TROMETHAMINE 60 MG/2 ML SDV ONE (08:00)
[2017-11-24] MEDS ORDERED: ONDANSETRON HCL INJ/PF 4 MG/2 ML SDV ONE (08:00)
[2017-11-24] MEDS ORDERED: DEXAMETHASONE SOD PHOSPHATE INJ 4 MG/1 ML VIAL ONE (08:00)
[2017-11-24] MEDS ORDERED: FENTANYL CITRATE INJ/PF 100 MCG/2 ML AMPUL ONE (09:24)
[2017-11-24] MEDS ORDERED: MIDAZOLAM 2 MG/2 ML INJ ONE (09:24)
[2017-11-24] MEDS ORDERED: HYDROMORPHONE HCL INJ/PF 2 MG/ML AMPULE ONE (09:25)
[2017-11-24] MEDS ORDERED: PROPOFOL INJ 200 MG/20 ML VIAL IV ONE (09:25)
[2017-11-24] MEDS ORDERED: BUPIVACAINE HCL 0.5 % INJ/PF 30 ML SDV ONE (09:34)
[2017-11-24] MEDS ORDERED: MEPERIDINE HCL/PF INJ 25 MG/1 ML DISP.SYRIN IV PRN (10:23)
[2017-11-24] MEDS ORDERED: PROMETHAZINE HCL INJ 25 MG/1 ML VIAL IV PRN (10:23)
[2017-11-24] MEDS ORDERED: DIPHENHYDRAMINE HCL 50 MG/ML VIAL IV PRN (10:23)
[2017-11-24] MEDS ORDERED: FENTANYL CITRATE INJ/PF 100 MCG/2 ML AMPUL IV PRN ×3 (10:23)
[2017-11-24] MEDS ORDERED: ACETAMINOPHEN 100 ML IV ONE (10:28)
[2017-11-24] MEDS ORDERED: ONDANSETRON HCL INJ/PF 4 MG/2 ML SDV IV PRN (11:58)
[2017-11-24] MEDS ORDERED: HYDROCODONE/ACETAMINOPHEN 5-325 MG TABLET PO PRN (11:58)
[2017-11-24] MEDS ORDERED: HYDROMORPHONE HCL INJ/PF 2 MG/ML AMPULE IV PRN (11:58)
--- NOTE | 2017-11-24 12:10 | Operative Report ---
Operative Report DATE OF SURGERY: 11/24/17 PREOPERATIVE DIAGNOSIS: Left Wrist ECU Subluxation POSTOPERATIVE DIAGNOSIS: Same OPERATION: 1. Left Wrist Arthroscopy w/ Debridement Radiocarpal Joint. 2. ECU Subsheath Repair. 3. Tenosynovectomy ECU SURGEON: KIMBERLY CARRANZA ANESTHESIA: GA COMPLICATIONS: None ESTIMATED BLOOD LOSS: Minimal PROCEDURE: Indication for above procedure: 31-year-old female with complaints of left wrist pain. Patient underwent conservative management including therapy and injections without resolution of her symptoms. On physical examination patient was exhibiting subluxation of the ECU tendon. At that point we discussed treatment options given her failed conservative management joint decision was made to proceed with operative treatment. Procedure In Detail: Patient was seen and evaluated in the preoperative holding area. The LEFT upper extremity was initialized and marked. Patient received 2g of Ancef IV for bacterial prophylaxis. Patient was taken back to the operative room where transferred to the operative table and placed under general anesthesia. Once they were adequately anesthetized a nonsterile tourniquet was placed on the upper extremity. A surgical team debriefing was performed ensuring all instrumentation was available, the surgical procedure was discussed with possible concerns reviewed. The upper extremity was prepped with chlorhexidine and alcohol and draped in a sterile fashion. A timeout was done identifying correct patient, procedure and extremity everyone in attendance agree with this and verbalized no concerns. Patient was placed in the Acumed wrist tower. The extremity was exsanguinated the tourniquet was inflated to 250 mmHg. A 3-4 portal was established arthroscope introduced into the radiocarpal joint. Under dry arthroscopy there was fraying of the RSL and long/short radiolunate ligaments. Diagnostic arthroscopy also revealed a chondral defect along the posterior aspect of the lunate. Also evidence of fraying of the radiocarpal joint with chondral defect at the transition from the scaphoid to lunate fossa. A 4-5 portal was established via triangulation arthroscope introduced. Chondroplasty was performed to the chondral defect of the lunate and the articular surface of the distal radius. Probing of the TFCC demonstrated mild synovitis but no evidence of TFCC disruption. There was also evidence of fraying along the dorsal ulnar aspect of the TFCC. Once complete I turned my attention to exploration of the ECU sub-sheath with the open procedure. Prior to proceed with the open procedure there is no evidence of DRUJ instability from pronation to supination. Longitudinal skin incision was made incorporating the 4-5 portal. Blunt dissection was performed. Any peripheral veins were coagulated with bipolar cautery the branch of the dorsal ulnar sensory nerve was identified and protected. With pronation-supination there was evidence of ECU subluxation in a volar direction and thus decision was made to proceed with sub-sheath repair. With C-arm fluoroscopy confines of the sub- sheath reconstruction flap utilizing the extensor retinaculum were determined. At the level of the ulnar styloid a ulnar base flap was established utilizing the septum of the 4-5/5-6 intervals and extensor retinaculum extending to the fourth dorsal compartment. The distal aspect of the extensor retinaculum was preserved to avoid any postoperative bowstringing. This was then carefully elevated along the volar ulnar corner. With elevation of the retinaculum was sub-sheath was not disrupted. The sub-sheath was then opened and exploration of the ECU demonstrating fraying and tenosynovitis. A tenosynovectomy was then performed of the ECU. I carefully elevated off the labrum from the linea jugata to allow for repair of the ECU sub-sheath. A small bur was utilized to contour the ECU groove. The ECU was not disrupted to avoid irritation to the ECU. Once this was complete under C-arm fluoroscopy two 2.4 mm suture tacks were placed horizontal mattress sutures were placed through the labrum and the extensor retinaculum securing the ulnar border of the ECU tunnel. The retinaculum was then brought to its original anatomic position and secured with interrupted 2-0 FiberWire suture. The distal aspect of the retinaculum was repaired with interrupted [id number] 2-0 FiberWire. Throughout wrist range of motion there is no evidence of ECU subluxation or DRUJ instability. Wound was copiously irrigated with normal saline. Subcutaneous tissues were closed with 4-0 Monocryl suture. Skin was closed with a running horizontal mattress 3-0 nylon. 3-4 portal was closed with a 3-0 nylon suture. 30 cc of 0.5% Marcaine without epinephrine was injected for postoperative pain control. Patient was placed in a sugar tong splint in neutral position. Sponge counts, instrument counts, needle counts counts were correct. Patient was then awoken from anesthesia. Transferred from the operating room table to the operating room stretcher. There was no intraoperative complications patient tolerated procedure well stable to PACU. Postoperative plan: Patient will follow-up the office in 2 weeks for suture removal. Patient will be set up for occupational therapy at that postoperative appointment and will be fitted for a custom Harris splint which they will continue for 2 weeks. At 4 weeks postoperatively will begin wrist flexion/extension 20/20 increasing 10 every 3-4 days. Will also begin pronation/supination 20-20 increasing 10 every 3-4 days until completeness. Once patient obtained 75% of motion will begin strengthening exercises. Will continue ECU taping during strength phase.
--- NOTE | 2017-11-24 12:22 | Discharge Summary ---
Discharge Summary (SDC) - Discharge Final Diagnosis: Left Wrist ECU Instability Date of Surgery: 11/24/17 Discharge Date: 11/24/17 Condition: Good Treatment or Instructions: Schedule Follow Up w/ Dr. Ceasar Dowell @ [facility] to be seen in 10-14 days or as scheduled [place]: [place]: [place]: Ice and elevate Keep splint clean/dry/intact. If your fingers become numb please unwrap the Emiliano wrap but leave the splint in place, if the sensation does not return within 30 minutes please return to the emergency department. May begin finger range of motion attempting to make full fist. You may also use acetaminophen (Tylenol) 1000 mg every 4-6 hours as needed for pain or fever. Please be aware that many medications contain acetaminophen, do not exceed a total of 1000 mg of acetaminophen every 6 hours. Stool softener of choice when on pain medication. Prescriptions: Ketorolac Tromethamine [Toradol 10 mg Tablet] 10 mg PO Q8HP PRN #10 tablet PRN Reason: Hydrocodone/Acetaminophen [[place] 7.5-325 mg Tablet] 1 tab PO Q6 PRN #40 tablet PRN Reason: Referrals: TODD COLORADO DO [Primary Care Provider] - Discharge Diet: As Tolerated Respiratory Treatments at Home: Deep Breathing/Coughing Discharge Activity: No Lifting Over 10 Pounds, No Lifting/Push/Pulling Report the Following to Your Physician Immediately: Fever over 101 Degrees, Unusual Bleeding, Redness, Swelling, Warmth, Increased Soreness
[2017-11-24] MEDS: FENTANYL CITRATE INJ/PF 100 MCG/2 ML AMPUL ONE ×2 (12:46→12:51)
[2017-11-24 14:55] VITALS: BP 156/104
--- NOTE | 2017-11-24 15:00 | RADIOLOGY REPORT (SQ) ---
EXAM DESCRIPTION: NO CHG FLUORO; WRIST LEFT 2 VIEWS COMPLETED DATE/TIME: 11/24/2017 12:42 pm REASON FOR STUDY: LEFT WRIST ARTHROSCOPY / DEBRIMENT ASST W/ FLUORO IN OR S63.002D UNSPECIFIED SUBL UXATION OF LEFT WRIST AND HAND, SUB S63.592D OTHER SPECIFIED SPRAIN OF LEFT WRIST, SUBSEQUENT EN COMPARISON: None. FLUOROSCOPY TIME: 9 seconds 2 images saved to PACS. TECHNIQUE: Intra-operative images acquired during surgical procedure to evaluate progress. NUMBER OF IMAGES: 2 LIMITATIONS: None. FINDINGS: 2 frontal views of the left wrist. On the 1st image there are instruments along the later al aspect of the distal ulna. On the second image, instruments are no longer present. There is sugg estion of small bony defect at site of instrumentation. Small amount of soft tissue gas is seen. IMPRESSION: IMAGE(S) OBTAINED DURING PROCEDURE. COMMENT: Quality ID [id number]: Final reports for procedures using fluoroscopy that document radiation exp osure indices, or exposure time and number of fluorographic images (if radiation exposure indices are not available) Please consult full operative report of the attending physician for description of the procedure. TECHNICAL DOCUMENTATION: JOB ID: [id number] [employer]- All Rights Reserved Reading location - IP/workstation name: [email or web address]
== END 2017-11-24 14:35 | disposition home or self-care (01) ==
LOC: OROUT 05:35
PROVIDERS: ATTEND Orthopaedic Surgery
PROC: 0RBP4ZZ Excision of Left Wrist Joint, Percutaneous Endoscopic Approach (ICD-10-PCS; principal; 2017-11-24 09:00)
PROC: 0LB60ZZ Excision of Left Lower Arm and Wrist Tendon, Open Approach (ICD-10-PCS; 2017-11-24 09:00)
DX: S63.022 Subluxation of radiocarpal joint of left wrist (principal); X58.XXXA Exposure to other specified factors, initial encounter; M25.332 Other instability, left wrist; M65.832 Other synovitis and tenosynovitis, left forearm; K21.9 Gastro-esophageal reflux disease without esophagitis; D50.9 Iron deficiency anemia, unspecified; E66.01 Morbid (severe) obesity due to excess calories; Z88.5 Allergy status to narcotic agent; Z79.899 Other long term (current) drug therapy; Z68.43 Body mass index [BMI] 50.0-59.9, adult
CPT/HCPCS: 93005; 36415; 85025; 81025; 80048; 81001; 71046; 73100; 93010; 29846; 25116; C1713; J2250; J3490 ×2; J1100; J1885; J3010; J1170; J0330; J2405; J2704; J0131; 01830

== ENCOUNTER → 2018-01-05 | Outpatient (CLI) | payer OTHER ==
[2018-01-05 15:21] LABS: ALANINE AMINOTRANSFERASE 26 U/L (9-52); ALBUMIN 4.1 g/dL (3.5-5.0); ALKALINE PHOSPHATASE 112 U/L (38-126); ANION GAP 15 (5-19); ASPARTATE AMINO TRANSFERASE 25 U/L (14-36); BILIRUBIN,DIRECT 0.2 mg/dL (0.0-0.4); BILIRUBIN,TOTAL 0.2 mg/dL (0.2-1.3); BLOOD UREA NITROGEN 11 mg/dL (7-20); CALCIUM 9.6 mg/dL (8.4-10.2); CARBON DIOXIDE 24 mmol/L (22-30); CHLORIDE 102 mmol/L (98-107); GLUCOSE 124 mg/dL (75-110); POTASSIUM 4.3 mmol/L (3.6-5.0); SODIUM 140.8 mmol/L (137-145)
== END ==
LOC: OD 14:25
PROVIDERS: ATTEND Surgery
DX: Z01.810 Encounter for preprocedural cardiovascular examination (principal); Z01.811 Encounter for preprocedural respiratory examination; Z01.812 Encounter for preprocedural laboratory examination; Z01.818 Encounter for other preprocedural examination; K21.9 Gastro-esophageal reflux disease without esophagitis
CPT/HCPCS: 36415; 80053

== ENCOUNTER → 2018-01-13 | Outpatient (CLI) | payer OTHER ==
--- NOTE | 2018-01-13 16:16 | RADIOLOGY REPORT (SQ) ---
EXAM DESCRIPTION: CHEST PA/LATERAL COMPLETED DATE/TIME: 01/13/2018 4:09 pm REASON FOR STUDY: PRE OP COMPARISON: 11/17/2017 EXAM PARAMETERS: NUMBER OF VIEWS: two views TECHNIQUE: Digital Frontal and Lateral radiographic views of the chest acquired. RADIATION DOSE: NA LIMITATIONS: none FINDINGS: LUNGS AND PLEURA: No opacities, masses or pneumothorax. No pleural effusion. MEDIASTINUM AND HILAR STRUCTURES: No masses or contour abnormalities. HEART AND VASCULAR STRUCTURES: Heart normal size. No evidence for failure. BONES: No acute findings. HARDWARE: None in the chest. OTHER: No other significant finding. IMPRESSION: NO SIGNIFICANT RADIOGRAPHIC FINDING IN THE CHEST. TECHNICAL DOCUMENTATION: JOB ID: [id number] [employer]- All Rights Reserved Reading location - IP/workstation name: [email or web address]
[2018-01-13 16:18] LABS: ABSOLUTE EOSINOPHILS # (AUTO) 0.2 10^3/uL (0.0-0.6); ABSOLUTE LYMPHOCYTES (AUTO) 2.5 10^3/uL (0.5-4.7); ABSOLUTE MONOCYTES (AUTO) 0.6 10^3/uL (0.1-1.4); BASOPHILS % (AUTO) 0.3 % (0-2); EOSINOPHILS % (AUTO) 1.4 % (0-6); HEMATOCRIT 39.1 % (36.0-47.0); HEMOGLOBIN 12.4 g/dL (12.0-15.5); LYMPHOCYTES % (AUTO) 22.1 % (13-45); MEAN CORPUSCULAR HEMOGLOBIN 24.6 pg (27.0-33.4); MEAN CORPUSCULAR HGB CONC 31.9 g/dL (32.0-36.0); MEAN CORPUSCULAR VOLUME 77 fl (80-97); MONOCYTES % (AUTO) 5.6 % (3-13); PLATELET COUNT 362 10^3/uL (150-450); RED BLOOD COUNT 5.07 10^6/uL (3.72-5.28); RED CELL DISTRIBUTION WIDTH 16.8 % (11.5-14.0); SEGMENTED NEUTROPHILS % (AUTO) 70.6 % (42-78); TOTAL CELLS COUNTED % (AUTO) 100 %; WHITE BLOOD COUNT 11.3 10^3/uL (4.0-10.5)
--- NOTE | 2018-01-13 22:31 | EKG REPORT ---
SEVERITY:- BORDERLINE ECG - SINUS TACHYCARDIA BORDERLINE T WAVE ABNORMALITIES : Confirmed by: Lashonda Inman 13-Jan-2018 22:30:55
== END ==
LOC: OD 15:06
PROVIDERS: ATTEND Surgery
DX: Z01.810 Encounter for preprocedural cardiovascular examination (principal); Z01.811 Encounter for preprocedural respiratory examination; Z01.812 Encounter for preprocedural laboratory examination; Z01.818 Encounter for other preprocedural examination; E66.01 Morbid (severe) obesity due to excess calories
CPT/HCPCS: 36415; 71046; 84443; 85025; 93005; 93010

== ENCOUNTER → 2018-01-20 | Outpatient (CLI) | payer OTHER ==
--- NOTE | 2018-01-20 10:19 | RADIOLOGY REPORT (SQ) ---
EXAM DESCRIPTION: U/S ABDOMEN LIMITED W/O DOP COMPLETED DATE/TIME: 01/20/2018 9:34 am REASON FOR STUDY: R10.11 RIGHT UPPER QUADRANT PAIN R10.11 RIGHT UPPER QUADRANT PAIN COMPARISON: None. TECHNIQUE: Dynamic and static grayscale images acquired of the abdomen and recorded on PACS. Additio nal selected color Doppler and spectral images recorded. LIMITATIONS: None. FINDINGS: PANCREAS: No masses. No peripancreatic edema or fluid collections. LIVER: Echotexture is coarse with increased echogenicity consistent with fatty infiltration. LIVER VASCULATURE: Normal directional flow of the main portal vein and hepatic veins. GALLBLADDER: No stones. Normal wall thickness. No pericholecystic fluid. ULTRASOUND-DETECTED FERNANDEZ'S SIGN: Negative. INTRAHEPATIC DUCTS AND COMMON DUCT: CBD and intrahepatic ducts normal caliber. No filling defects. INFERIOR VENA CAVA: Normal flow. AORTA: No aneurysm. RIGHT KIDNEY: Normal size. Normal echogenicity. No solid or suspicious masses. No hydronephrosis. No calcifications. PERITONEAL AND RIGHT PLEURAL SPACE: No ascites or effusions. OTHER: No other significant finding. IMPRESSION: No acute findings. TECHNICAL DOCUMENTATION: JOB ID: [id number] [employer]- All Rights Reserved Reading location - IP/workstation name: [email or web address]
== END ==
LOC: RAD 09:04
PROVIDERS: ATTEND Surgery
DX: R10.11 Right upper quadrant pain (principal)
CPT/HCPCS: 76705

== ENCOUNTER → 2019-12-06 | Outpatient (CLI) | payer OTHER ==
--- NOTE | 2019-12-06 15:01 | RADIOLOGY REPORT (SQ) ---
EXAM DESCRIPTION: VENOUS UNILATERAL UPPER COMPLETED DATE/TIME: 12/06/2019 1:37 pm REASON FOR STUDY: LUE PAIN M25.532 PAIN IN LEFT WRIST COMPARISON: None. TECHNIQUE: Dynamic and static meek scale and color images acquired of the left arm venous system. Se lected spectral images acquired with additional compression and augmentation maneuvers. The contralat eral subclavian vein and internal jugular vein were also imaged. Images stored on PACS. LIMITATIONS: None. FINDINGS: INTERNAL JUGULAR VEIN: Normal phasicity, compression, augmentation. No visualized echogeni c material on meek scale. No defects on color images. Comparison opposite side normal. SUBCLAVIAN VEIN: Normal compression, augmentation. No visualized echogenic material on meek scale. No defects on color images. AXILLARY VEIN: Normal compression, augmentation. No visualized echogenic material on meek scale. No d efects on color images. BRACHIAL VEIN: Normal compression, augmentation. No visualized echogenic material on meek scale. No d efects on color images. BASILIC VEIN: Normal compression, augmentation. No visualized echogenic material on meek scale. No de fects on color images. CEPHALIC VEIN: Normal compression, augmentation. No visualized echogenic material on meek scale. No d efects on color images. OTHER: No other significant finding. CONTRALATERAL SUBCLAVIAN VEIN AND INTERNAL JUGULAR VEIN: Normal phasicity, compression and augmentation. No visualized echogenic material on meek scale. No de fects on color images. IMPRESSION: NO EVIDENCE DVT OR SVT IN THE LEFT ARM. TECHNICAL DOCUMENTATION: JOB ID: [id number] [employer]- All Rights Reserved Reading location - IP/workstation name: [email or web address]
== END ==
LOC: SP 09:47
PROVIDERS: ATTEND Orthopaedic Surgery
DX: M25.532 Pain in left wrist (principal); G56.22 Lesion of ulnar nerve, left upper limb; M77.8 Other enthesopathies, not elsewhere classified
CPT/HCPCS: 93971